=== PATIENT | female | born 1960 | race Caucasian/White ===

== ENCOUNTER 2019-12-23 10:19 | Emergency (ER) | payer OTHER ==
[~2019-12-23] VITALS: Ht 157.5 cm; Wt 53.1 kg
[~2019-12-23 10:19] MED LIST: DULO60CA45 PO
[2019-12-23] MEDS ORDERED: OLANZAPINE 5 MG TABLET PO ONE (10:30)
[2019-12-23] MEDS ORDERED: OLANZAPINE 5 MG TABLET ONE (10:34)
--- NOTE | 2019-12-23 10:38 | NUR ---
PT PROVIDED W/ A MEAL TRAY.
[2019-12-23 10:40] LABS: BASOPHILS # (AUTO) 0.3 /CMM (0.0-0.2); BASOPHILS % (AUTO) 3.8 % (0.0-2.0); EOSINOPHILS % (AUTO) 1.8 % (0.0-6.0); HEMATOCRIT 43 % (33-45); HEMOGLOBIN 14.4 g/dL (11.5-14.8); LYMPHOCYTES # (AUTO) 1.3 /CMM (0.8-4.8); LYMPHOCYTES % (AUTO) 18.9 % (20.0-44.0); MEAN CORPUSCULAR HGB CONC 34 g/dl (31.0-36.0); MEAN CORPUSCULAR VOLUME 90 fL (82-100); MONOCYTES # (AUTO) 0.3 /CMM (0.1-1.30); MONOCYTES % (AUTO) 4.5 % (2.0-12.0); PLATELET COUNT (AUTO) 334 /CMM (150-450)
[2019-12-23 10:54] LABS: CALCIUM, SERUM 8.9 mg/dL (8.5-10.1); CARBON DIOXIDE 20 mmol/L (21-32); CHLORIDE 101 mmol/L (98-107); CREATININE 0.5 mg/dL (0.6-1.3); GLUCOSE 82 mg/dL (74-106); POTASSIUM 3.7 mmol/L (3.5-5.1); SODIUM SERUM 139 mmol/L (136-145); UREA NITROGEN, BLOOD 15 mg/dL (7-18)
[2019-12-23 10:59] LABS: ALANINE AMINOTRANSFERASE 20 U/L (12-78); ALCOHOL, BLOOD < 3 mg/dL (0-0); ALKALINE PHOSPHATASE 84 U/L (46-116); ASPARTATE AMINOTRANSFERASE 21 U/L (15-37); BILIRUBIN,DIRECT 0.1 mg/dL (0.0-0.2); BILIRUBIN,TOTAL 0.7 mg/dL (0.2-1.0); SALICYLATE 4.4 mg/dL (2.8-20.0); TOTAL PROTEIN, SERUM 7.2 g/dL (6.4-8.2)
[2019-12-23 11:03] LABS: ACETAMINOPHEN 0 ug/ml (10-30)
--- NOTE | 2019-12-23 11:30 | NUR ---
CLEO, C/O WEAKNESS, EMOTIONAL, STS "I HAVENT ATE IN 4 DAYS", assumed care of pt, pt in bed, -sob, nad noted, vss.
--- NOTE | 2019-12-23 11:45 | NUR ---
CALLED CRISIS FOR EVAL. SECOND ATTEPMT.
--- NOTE | 2019-12-23 11:50 | NUR ---
REFUSING TO PROVIDE URINE SAMPLE.
--- NOTE | 2019-12-23 12:11 | NUR ---
PAGED CRISIS RENNY FOR EVAL. THIRD ATTEMPT.
--- NOTE | 2019-12-23 12:32 | NUR ---
RENNY CALLED BACK. SHE IS AT ANOTHER HOSPITAL WITH ANOTHER PT. WILL TRY TO COME IN WHEM SHE BECOMES AVAILABLE. SHE PROVIDED AN UNKNOWN ETA FOR EVALUATION AND ADVISED IF ANYONE ELSE CAN PERFORM EVALUATION.
--- NOTE | 2019-12-23 13:02 | NUR ---
LUNCH TRAY PROVIDED, TOLERATING PO WELL.
--- NOTE | 2019-12-23 13:12 | NUR ---
ART CAPILLA PANEL MACHINE SETTER. WILL EVALUATE THE PATIENT.
[2019-12-23 14:30] VITALS: BP 139/90
--- NOTE | 2019-12-23 14:33 | NUR ---
DAIRY MANUFACTURING TECHNOLOGIST OFELIA SAVAGE AT BEDSIDE
--- NOTE | 2019-12-23 15:01 | NUR ---
seen by dr. izquierdo, pt denies any s/i or h/i, pt wants to be d/c. per dr. izquierdo pt can go.
--- NOTE | 2019-12-23 16:16 | NUR ---
Patient given written and verbal discharge instructions. Patient verbalizes understanding of instructions. Patient is ambulatory with steady gait. Refuses offer of half-way placement. Patient given list of available shelters in surrounding area.
== END 2019-12-23 16:18 | disposition home or self-care (01) ==
LOC: ER 10:41
DX: F28 Other psychotic disorder not due to a substance or known physiological condition (principal); F32.9 Major depressive disorder, single episode, unspecified; F17.200 Nicotine dependence, unspecified, uncomplicated; Z60.2 Problems related to living alone; Z79.899 Other long term (current) drug therapy
CPT/HCPCS: 36415; 71045; 80048; 80076; 80307; 80329; 85025; 99285; G0480

== ENCOUNTER 2020-06-29 07:31 | Inpatient (IN) | payer OTHER ==
[~2020-06-29] VITALS: Ht 160 cm; Wt 54.4 kg
--- NOTE | 2020-06-29 07:35 | NUR ---
shereen, picked up in her car, c/o nausea vomiting x 3 days,-diarrhea. Dr. Remy at bedside for eval. Patient a/ox3, appears to be anxious and easily agitated. Breathing even and unlabored, no sob noted. Needs attended.
[2020-06-29] MEDS ORDERED: OLANZAPINE 5 MG TABLET ONE (07:43)
--- NOTE | 2020-06-29 07:45 | NUR ---
Patient given a urine cup, refused to give a urine sample at this time.
[2020-06-29] MEDS ORDERED: OLANZAPINE 5 MG TABLET PO ONE ×2 (08:00→12:00)
[2020-06-29 08:12] LABS: BASOPHILS % (AUTO) 0.7 % (0.0-2.0); EOSINOPHILS % (AUTO) 1.5 % (0.0-6.0); HEMATOCRIT 42 % (33-45); HEMOGLOBIN 14.2 g/dL (11.5-14.8); LYMPHOCYTES # (AUTO) 1.9 /CMM (0.8-4.8); LYMPHOCYTES % (AUTO) 29.4 % (20.0-44.0); MEAN CORPUSCULAR HGB CONC 34 g/dl (31.0-36.0); MEAN CORPUSCULAR VOLUME 89 fL (82-100); MONOCYTES # (AUTO) 0.5 /CMM (0.1-1.30); MONOCYTES % (AUTO) 7.2 % (2.0-12.0); NEUTROPHILS % (AUTO) 61.2 % (43.0-81.0); PLATELET COUNT (AUTO) 336 /CMM (150-450); RED BLOOD CELL COUNT(AUTO) 4.74 MIL/uL (4.0-5.2); WHITE BLOOD COUNT (AUTO) 6.5 K/uL (4.3-11.0)
--- NOTE | 2020-06-29 08:44 | NUR ---
Patient resting, no distress noted.
[2020-06-29 08:46] LABS: CALCIUM, SERUM 9.2 mg/dL (8.5-10.1); CARBON DIOXIDE 21 mmol/L (21-32); CHLORIDE 101 mmol/L (98-107); CREATININE 0.6 mg/dL (0.6-1.3); GLUCOSE 95 mg/dL (74-106); POTASSIUM 3.9 mmol/L (3.5-5.1); SODIUM SERUM 136 mmol/L (136-145); UREA NITROGEN, BLOOD 18 mg/dL (7-18)
[2020-06-29 08:53] LABS: ALANINE AMINOTRANSFERASE 21 U/L (12-78); ALCOHOL, BLOOD < 3 mg/dL (0-0); ALKALINE PHOSPHATASE 75 U/L (46-116); ASPARTATE AMINOTRANSFERASE 20 U/L (15-37); BILIRUBIN,DIRECT 0.2 mg/dL (0.0-0.2); SALICYLATE 3.7 mg/dL (2.8-20.0); TOTAL PROTEIN, SERUM 7.3 g/dL (6.4-8.2)
[2020-06-29 08:55] LABS: ACETAMINOPHEN 0 ug/ml (10-30)
[2020-06-29 09:17] LABS: APPEARANCE,URINE CLEAR (CLEAR); BILIRUBIN,URINE MODERATE (NEGATIVE); BLOOD, URINE SMALL Ery/uL (NEGATIVE); KETONES,URINE >=80 (NEGATIVE); LEUKOCYTE ESTERASE ,URINE TRACE (NEGATIVE); NITRITE, URINE NEGATIVE (NEGATIVE); PROTEIN,URINE >=300 mg/dl (NEGATIVE); UGLUCOSE NEGATIVE (NEGATIVE); UROBILINOGEN,URINE 0.2 EU/dL (0.2)
[2020-06-29 09:35] LABS: COLOR,URINE DARK YELLOW (YELLOW)
[2020-06-29 09:36] LABS: BACTERIA,URINE Few /HPF (None Seen); MUCUS,URINE Few /LPF (None Seen); SQUAMOUS EPITHELIAL CELL,UR Few /HPF (None Seen)
--- NOTE | 2020-06-29 10:15 | NUR ---
SSD GIPSY AT BEDSIDE.
[2020-06-29] MEDS ORDERED: LORAZEPAM 1 MG TABLET PO ONE (12:00)
[2020-06-29] MEDS ORDERED: LORAZEPAM INJ 2 MG/ML VIAL IM ONE (12:00)
[2020-06-29] MEDS ORDERED: HALOPERIDOL LACTATE INJ 5 MG/ML VIAL IM ONE (12:00)
[2020-06-29] MEDS ORDERED: HALOPERIDOL LACTATE INJ 5 MG/ML VIAL ONE (12:02)
[2020-06-29] MEDS ORDERED: LORAZEPAM INJ 2 MG/ML VIAL ONE (12:03)
--- NOTE | 2020-06-29 12:07 | NUR ---
PT WENT TO THAT STATION AGITATED, YELLING ANG BEING DISRUPTIVE TO THE CARE FLOOR. PT WAS ASKED SEVERAL TIMES TO PLEASE GO BACK TO HER BED WHILE AWAITING FOR DISCHARGE. WHEN PT WAS FINALLY ESCORTED BACK TO THE BED, PT GOT COMBATIVE AND SPITTING AT STAFF. LILLIANA KUMAR WAS CALLED. PT PLACED ON RESTRAINTS AND MEDICATED ORDERED. 1:1 SITTER AT BEDSIDE. WILL CONTINUE TO MONITOR PT
--- NOTE | 2020-06-29 13:22 | NUR ---
SPOKE TO RENNY SANTOSW, ETA 3 MINS.
--- NOTE | 2020-06-29 14:34 | NUR ---
RENNY AT BEDSIDE FOR EVAL.
--- NOTE | 2020-06-29 15:39 | NUR ---
BED 215 A
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
--- NOTE | 2020-06-29 16:03 | NUR ---
10:20am This SW returned to speak with the patient with information regarding Section 8 housing. This SW provided the patient with a printout from [facility] stating The Section 8 waiting list is closed until further notice and the homelessness resource packet. In addition to, this SW was to complete the social work therapist assessment and the only report the patient provided was that she was diagnosed with depression and wanted to speak with a psychiatrist. The patient then began to argue with this SW by stating All you are doing is giving me papers. I want a home. Find me a place to live. ISAIAS Warren witnessed that this patient was speaking with this SW.
--- NOTE | 2020-06-29 16:03 | NUR ---
11:15 am: This SW spoke with her superior Slime Dempsey LCSW and Slime asked to speak with the patient via tele. Slime Dempsey LCSW explained to the patient that KARLIE Ribera would submit a referral to [facility] for possible placement but there could be a long wait. Slime Dempsey LCSW spoke with the headline writer of this note, Marshall Ribera, to go ahead and refer this patient to [facility] and to provide her any homelessness resources.
--- NOTE | 2020-06-29 16:04 | NUR ---
11:30am: This SW spoke with [facility] medical office representative Mily (include phone number) to submit a referral request for this patient to be placed in temporary housing. Mily completed an eligibility assessment with this SW, including gathering information on patients demographics and medical history. SW provided Mily with information from patients medical records. Mily informed this SW that based on patients medical history and the age criteria of 65 and older, the patient does not qualify for the [facility] program. This SW thanked representative Minor for her time.
--- NOTE | 2020-06-29 16:05 | NUR ---
11:45am: This SW notified nursing staff that [facility] would not accept the patient and that the patient would have to leave once she was medically cleared by the ER doctor on service. This SW provided the following resources to the patient: Substance Abuse resources provided included: [facility] Substance Abuse Self-Helpline ([facility]) ; [facility] [address] [facility] [place] [id number] ; [facility] [place] [address] [facility] [address] ; [facility] [address] [facility] [id number] ; [facility] [address] [facility] [address] ; [facility] [address] [facility] [address] ; [facility] 909 [facility] [id number] ; [facility]stance Abuse [facility] ; [facility] ; [facility] [place]; [facility] [place]; [facility] [address] [place]; [facility] [place]; [facility] [place]; [facility] [place]; [facility] [place]; Alcoholics Anonymous -SFV; Kr-Lhhu-Ynxihiu ; Marijuana Anonymous -SFV; Narcotics Anonymous www.na.org. Year-round shelters : [facility] [address] [place] [address] ; [place] [address] [facility] [place] [address]; [facility] [address] [facility] [address] Hygiene: [facility]: [address] [place] ; [facility] [address] [facility] [place] ; [facility] [address] . Food Resources: [facility]- [address] [place]; Meet Each Need wit Dignity ([facility]) [address] [facility] [place]; [facility] 0671 [facility]; [facility] [address].
--- NOTE | 2020-06-29 16:08 | NUR ---
COVID SWAB SENT.
--- NOTE | 2020-06-29 16:53 | NUR ---
CALL FROM LAB,COVID TEST RESULT=NEGATIVE
--- NOTE | 2020-06-29 17:05 | NUR ---
REPORT GIVE TO FANNIE ESPARZA.
--- NOTE | 2020-06-29 17:38 | NUR ---
PATIENT TRANSFERRED TO [facility]. PATIENT ASLEEP BUT EASILY AROUSABLE, NO DISTRESS NOTED. NEEDS ATTENDED.
[2020-06-29] MEDS ORDERED: DULO60CA64 PO (17:47)
[2020-06-29] MEDS ORDERED: LOSA25TA27 PO (17:47)
[2020-06-29] MEDS ORDERED: METH20TA9 PO (17:47)
[2020-06-29] MEDS ORDERED: BLOOD SUGAR DIAGNOSTIC 1 EACH STRIP IN ONE (18:00)
[2020-06-29] MEDS ORDERED: MAG HYDROX/AL HYDROX/SIMETH 30 ML UDC PO PRN (18:00)
--- NOTE | 2020-06-29 18:05 | NUR ---
RN NOTE- PT ADMITTED TO [facility] AT THIS TIME.
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
[2020-06-30] MEDS ORDERED: VALA500T40 PO (02:27)
[2020-06-30] MEDS ORDERED: IBUP-1953 PO (02:36)
[2020-06-30] MEDS ORDERED: DIPH25TA62 PO (02:36)
[2020-06-30] MEDS ORDERED: IBUP100O19 PO (02:36)
--- NOTE | 2020-06-30 06:40 | NUR ---
GPS RN CLOSING NOTE: PT SLEPT THROUGHOUT THIS SHIFT D/T EMERGENCY MEDICATION GIVEN AT ER. THIS NURSE TRIED TO WAKE PT UP AT 0630 BUT STATED "I JUST WANT TO SLEEP", AND WENT BACK TO SLEEP. RESPIRATION EVEN AND UNLABORED WITH EQUAL RISE AND FALL OF THE CHEST, ON ROOM AIR. WILL CONTINUE TO MONITOR AND ENDORSE TO AM SHIFT.
[2020-06-30 07:11] LABS: CHOLESTEROL 191 mg/dL (<200); HDL CHOLESTEROL 56 mg/dL (40-60); LDL 122 mg/dL (0-99); TRIGLYCERIDES 102 mg/dL (30-150)
[2020-06-30 07:15] LABS: ALBUMIN 3.4 g/dL (3.4-5.0); BILIRUBIN,TOTAL 0.8 mg/dL (0.2-1.0); CALCIUM, SERUM 9.4 mg/dL (8.5-10.1); CREATININE 0.5 mg/dL (0.6-1.3); POTASSIUM 3.8 mmol/L (3.5-5.1); TOTAL PROTEIN, SERUM 6.4 g/dL (6.4-8.2)
[2020-06-30 08:00] VITALS: BP 109/70
[2020-06-30] MEDS: LOSARTAN POTASSIUM 25 MG TABLET PO SCH (09:00)
--- NOTE | 2020-06-30 09:00 | NUR ---
RN NOTE- PT AGGRESSIVE POSTURING USING PROFANITY YELLING REDIRECTED PRN RX GIVEN FOOD BROUGHT PT MD JULIA TO SEE PT DENYING SI HI AH VH
[2020-06-30] MEDS: clonazePAM 0.5 MG TABLET PO PRN (09:39)
--- NOTE | 2020-06-30 09:41 | NUR ---
RN NOTE- PT AGGRESSIVE SCREAMING USING PROFANITY. CLONOPIN 0.5 MG GIVEN
--- NOTE | 2020-06-30 09:47 | NUR ---
Social Work Initial Discharge Note: Patient is currently homeless and will require a placement. This fiction and nonfiction prose writer contacted patient's family member Krystal ([phone]) but the number did not exist. This fiction and nonfiction prose writer attempted to discuss discharge plan with patient and patient was uncooperative. This fiction and nonfiction prose writer will work with the MD and treatment team to discuss alternative placement for patient.
--- NOTE | 2020-06-30 09:47 | NUR ---
Social Work Individual Therapy: This copywriter attempted to discuss placement with patient and patient was uncooperative. Patient was verbally abusive towards this copywriter and stated "get the fuck out of my room". This copywriter will attempt to meet with patient at a different time.
--- NOTE | 2020-06-30 09:47 | NUR ---
Social Work Family Contact: This press writer contacted patient's family member Krystal ([phone]) but the number did not exist.
--- NOTE | 2020-06-30 09:50 | NUR ---
UR Note: This repairer typewriter received an email from [employer] with authorization information: [facility] ([phone]) Auth: [id number] and is authorized for three days. This repairer typewriter left a voicemail to Adela to call back as Adela does not accept clinicals through her voicemail.
[2020-06-30] MEDS: DULOXETINE HCL 30 MG CAPSULE.DR PO SCH (11:42)
--- NOTE | 2020-06-30 12:13 | NUR ---
UR Note: This television script writer received an email from [employer] with authorization information: [facility]ela with [facility] ([phone]) Auth: [id number] and is authorized until Tuesday 07/03. Per Aedla, she stated that Cristal case assembler ([phone]) will help arrange outpatient appointments upon dc. This television script writer contacted and left a voicemail.
--- NOTE | 2020-06-30 12:28 | NUR ---
Social Work Note Substance Abuse Intervention: Patient was provided with a brief substance abuse intervention and referred to the following substance abuse programs: [facility] Substance Abuse Self-helpline ([phone]); [facility] [address] [place] [address] ([phone]); [facility] [address] [facility] [address] ([phone]); [facility] Program ([phone]); [facility] ([phone]); [facility] ([phone]); [facility] ([phone]).
[2020-06-30 16:00] VITALS: BP 104/68
[2020-06-30 20:55] VITALS: BP 91/63
[2020-06-30] MEDS: OLANZAPINE 5 MG/TAB.RAPDIS PO SCH (21:08)
[2020-07-01 08:00] VITALS: BP 103/75
[2020-07-01] MEDS: VALACYCLOVIR HCL 500 MG TABLET PO SCH (08:18)
[2020-07-01] MEDS: OLANZAPINE 5 MG/TAB.RAPDIS PO SCH ×2 (08:18→21:37)
[2020-07-01] MEDS: LOSARTAN POTASSIUM 25 MG TABLET PO SCH (08:18)
[2020-07-01] MEDS: DULOXETINE HCL 30 MG CAPSULE.DR PO SCH (08:18)
--- NOTE | 2020-07-01 08:30 | NUR ---
KARLIE Individual Therapy: This sports book writer met with patient to provide brief therapy. Pt was uncooperative and was verbally abusive towards this sports book writer. Pt did not want to talk to this sports book writer and stated "get the hell out". This sports book writer was unable to provide brief therapy at this moment.
--- NOTE | 2020-07-01 09:16 | NUR ---
Social Work Note: This verse writer attempted to discuss placement options with pt. Pt was uncooperative and was not understanding. This verse writer gave pt options of Independent Living and Board and Care with various prices. Pt refused to pay $900 or $1,200 and was tangential. She stated that this verse writer is a social media specialist and is obligated to get her section housing. This verse writer explained that we do not do that in the psychiatric unit and this verse writer will provide resources. Pt refuses resources and became verbally abusive and aggress. Pt stated "Go f yourself".
[2020-07-01] MEDS: NICOTINE PATCH (21MG) 21 MG PATCH.TD24 TD SCH (09:23)
--- NOTE | 2020-07-01 10:08 | NUR ---
Social Work Coordination of Care: This sheet writer spoke with Paul (entertainment agent) from [facility] ([phone]) option 7 and proceeded with an assessment to see if pt meets criteria. Per Paul, she stated that pt does not meet the criteria because she does not have medical conditions and does not meet the minimum age.
--- NOTE | 2020-07-01 11:06 | NUR ---
Social Work Note: This financial underwriter met with patient and stated that she is accepted to an Independent Living [address] [place] [address], [facility] [place]; ([phone]) admin Yury. This financial underwriter stated that they are willing to accept her with $1,000 dollars and pt agreed.
--- NOTE | 2020-07-01 11:07 | NUR ---
Social Work Coordination of Care: This insurance underwriter sales spoke with Yurymegan leyva ([phone]) [facility] [address] [place] [address] is willing to accept pt. Addendum: 07/06/20 at 1336 by SUSHMA ZIE[address]ER [facility]
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
[2020-07-01] MEDS: clonazePAM 0.5 MG TABLET PO PRN (13:12)
--- NOTE | 2020-07-01 13:12 | NUR ---
RN NOTES PATIENT BECAME ANXIOUS KLONOPIN GIVEN ORDERED, SAFETY MEASURES IN PLACE. WILL CONTINUE TO MONITOR PATIENT.
[2020-07-01 16:00] VITALS: BP 104/76
[2020-07-01] MEDS ORDERED: HALOPERIDOL LACTATE INJ 5 MG/ML VIAL IM STA (16:18)
[2020-07-01] MEDS ORDERED: diphenhydrAMINE HCL 50 MG/ML VIAL IM STA (16:18)
[2020-07-01] MEDS ORDERED: LORAZEPAM INJ 2 MG/ML VIAL IM STA (16:18)
--- NOTE | 2020-07-01 17:48 | NUR ---
RN NOTES VITAL SIGNS REMAIN WITHIN NORMAL LIMITS, PATIENT ALERT ORIENTED X 3. NO ACUTE DISTRESS NOTED. WILL CONTINUE TO MONITOR SAFETY MEASURES IN PLACE.
--- NOTE | 2020-07-01 18:08 | NUR ---
RN NOTES PATIENT SITTING IN BED, EATING DINNER, ALERT ORIENTED X 3. NO ACUTE DISTRESS NOTED. BREATHING UNLABORED. CALM AND COOPERATIVE AT THIS TIME . VITAL SIGNS REMAIN WITHIN NORMAL LIMITS. SAFETY MEASURES IN PLACE. WILL CONTINUE TO MONITOR
--- NOTE | 2020-07-01 18:45 | NUR ---
RN NOTES PATIENT LYING IN BED, ALERT ORIENTED X 3. NO ACUTE DISTRESS NOTED. VITAL SIGNS REMAIN WITHIN NORMAL LIMITS. SAFETY MEASURES IN PLACE. WILL CONTINUE TO MONITOR
--- NOTE | 2020-07-01 18:46 | NUR ---
RN NOTE:PATIENT STARTED TO GET ANGRY YELLING AND SCREAMING ,HOSTILE ,STRIKING AT STAFF DESPITE TRYING TO CALM HER DOWN SHE STARTED TO SHOUT AND VERBALLY ABUSING STAFF ,TRIED TO REDIRECT HER TO LOWER STIMULI SETTING ,1:1 INTERACTION WITH PATIENT ,OFFERED PO MEDICATION BUT PATIENT REFUSED NOTIFIED WITH NEW ORDER ATIVAN 2MG IM ,HALDOL 5MG IM ,BENADRYL 50MG IM AND GIVEN AT 16:38 BY PRIMARY NURSE ,VS AT AT 17:23 BP 122/79,P 94,R 18 ,O2 SAT 99%,17:38 BP 118/78 ,P 96 ,R 18 ,O2 SAT 99%, PATIENT CALM RESTING AT THIS TIME WILL CONTINUE TO MONITOR .
[2020-07-01 20:35] VITALS: BP 95/59
[2020-07-01 21:15] VITALS: BP 88/61
--- NOTE | 2020-07-01 21:39 | NUR ---
GPS-RN NOTE: SCHEDULED ZYPREXA ZYDIS 7.5MG PO NOT ADMINISTERED DUE TO BP 88/61. WILL CONTINUE TO MONITOR.
[2020-07-02 08:00] VITALS: BP 99/60
[2020-07-02] MEDS: OLANZAPINE 5 MG/TAB.RAPDIS PO SCH ×2 (08:01→21:31)
[2020-07-02] MEDS: DULOXETINE HCL 30 MG CAPSULE.DR PO SCH (08:01)
[2020-07-02] MEDS: VALACYCLOVIR HCL 500 MG TABLET PO SCH (08:01)
[2020-07-02] MEDS: NICOTINE PATCH (21MG) 21 MG PATCH.TD24 TD SCH (08:01)
[2020-07-02] MEDS: LOSARTAN POTASSIUM 25 MG TABLET PO SCH (08:08)
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
[2020-07-02] MEDS ORDERED: HALOPERIDOL LACTATE INJ 5 MG/ML VIAL IM STA (12:41)
[2020-07-02] MEDS ORDERED: diphenhydrAMINE HCL 50 MG/ML VIAL IM STA (12:41)
[2020-07-02] MEDS ORDERED: LORAZEPAM INJ 2 MG/ML VIAL IM STA (12:41)
--- NOTE | 2020-07-02 12:41 | NUR ---
GPS NOTE THE PATIENT HAD TELEHEALTH SESSION WITH DR REED AND DURING THE SESSION THE PATIENT REQUESTED THE DOCTOR TO PRESCRIBE RITALIN. THE DOCTOR EXPLAIN THE REASONS WHY RITALIN CANNOT PRESCRIBED. DESPITE GIVING EDUCATION/EXPLANATION TO THE PATIENT, THE PATIENT REFUSED TO ACCEPT GIVEN INFORMATION AND GOT UPSET. ALSO, MD INFORMED HER THAT HER HOLD WILL BE EXTENDED. AFTER FINISHING TELEHEALTH SESSION, THE PATIENT STARTED TO SHOUT AND WANTING TO LEAVE THE HOSPITAL. THE PATIENT WAS VERY LOUD AND NOT DIRECTABLE. MD IS MADE AWARE AND PER MD ORDER GAVE SHOT OF BENADRYL, HALOD AND ATIVAN. THE PATIENT TOLERATES THE SHOT WELL. NO SIDE EFFECTS NOTED AT THIS TIME. WILL CONTINUE TO MONITOR THE PATIENT CLOSELY.
[2020-07-02 16:00] VITALS: BP 111/78
[2020-07-02] MEDS: MAGNESIUM HYDROXIDE 30 ML UDC PO PRN (17:21)
[2020-07-02] MEDS: clonazePAM 0.5 MG TABLET PO PRN (19:44)
[2020-07-02 20:02] VITALS: BP 133/78
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
[2020-07-03 08:00] VITALS: BP 110/76
[2020-07-03] MEDS: NICOTINE PATCH (21MG) 21 MG PATCH.TD24 TD SCH (08:24)
[2020-07-03] MEDS: OLANZAPINE 5 MG/TAB.RAPDIS PO SCH ×2 (08:24→21:12)
[2020-07-03] MEDS: DULOXETINE HCL 30 MG CAPSULE.DR PO SCH (08:24)
[2020-07-03] MEDS: VALACYCLOVIR HCL 500 MG TABLET PO SCH (08:24)
[2020-07-03] MEDS: LOSARTAN POTASSIUM 25 MG TABLET PO SCH (08:24)
[2020-07-03] MEDS: clonazePAM 0.5 MG TABLET PO PRN ×3 (09:08→23:23)
--- NOTE | 2020-07-03 11:13 | NUR ---
UR Note: Spoke with Cristal watch case polisher ([phone]) who stated that she will authorize pt's stay until July 07Monday and will require clinical review that day. Auth #[id number].
[2020-07-03] MEDS: MAGNESIUM HYDROXIDE 30 ML UDC PO PRN (12:48)
--- NOTE | 2020-07-03 15:00 | NUR ---
GPS/RN KLONOPIN 0.5MG PO GIVEN FOR ANXIETY ORDERED
[2020-07-03 16:00] VITALS: BP 119/89
[2020-07-03 19:46] VITALS: BP 125/77
--- NOTE | 2020-07-03 23:24 | NUR ---
RN NOTES: ANXIETY PT.C/O ANXIOUS ,KLONOPIN 0.5 MG PO PRN GIVEN PER PT. REQUEST, WILL CONTINUE TO MONITOR.
--- NOTE | 2020-07-04 06:31 | NUR ---
RN NOTES: PT. RESTING IN HER ROOM , NO ACUTE DISTRESS, NO CHANGES NOTED, ALL NEEDS ANTICIPATED, WILL CONTINUITY WITH CARE.
[2020-07-04 08:00] VITALS: BP 113/73
[2020-07-04] MEDS: DULOXETINE HCL 30 MG CAPSULE.DR PO SCH (08:08)
[2020-07-04] MEDS: NICOTINE PATCH (21MG) 21 MG PATCH.TD24 TD SCH (08:08)
[2020-07-04] MEDS: OLANZAPINE 5 MG/TAB.RAPDIS PO SCH ×2 (08:08→21:11)
[2020-07-04] MEDS: LOSARTAN POTASSIUM 25 MG TABLET PO SCH (08:09)
--- NOTE | 2020-07-04 08:36 | NUR ---
GPS/RN PT IS YELLING, NOT REDIRECTABLE SCREAMS , USING PROFANE LANGUAGE. DR REED CALLED FOR THE ORDERS . NEW ORDERS RECEIVED AND CARRIED OUT
[2020-07-04] MEDS ORDERED: HALOPERIDOL LACTATE INJ 5 MG/ML VIAL IM ONE (09:00)
[2020-07-04] MEDS ORDERED: diphenhydrAMINE HCL 50 MG/ML VIAL IM ONE (09:00)
[2020-07-04] MEDS ORDERED: LORAZEPAM INJ 2 MG/ML VIAL IM ONE (09:00)
[2020-07-04] MEDS ORDERED: VALACYCLOVIR HCL 500 MG TABLET PO PRN (09:00)
[2020-07-04 16:00] VITALS: BP 130/82
[2020-07-04] MEDS: clonazePAM 0.5 MG TABLET PO PRN (17:06)
--- NOTE | 2020-07-04 17:11 | NUR ---
GPS/RN KLONOPIN 0.5MG PO GIVEN FOR ANXIETY ORDERED
[2020-07-04] MEDS: MAGNESIUM HYDROXIDE 30 ML UDC PO PRN (17:36)
[2020-07-04 20:36] VITALS: BP 124/87
[2020-07-05 08:00] VITALS: BP 130/87
[2020-07-05] MEDS: DULOXETINE HCL 30 MG CAPSULE.DR PO SCH (08:51)
[2020-07-05] MEDS: LOSARTAN POTASSIUM 25 MG TABLET PO SCH (08:51)
[2020-07-05] MEDS: clonazePAM 0.5 MG TABLET PO PRN ×3 (08:52→17:56)
[2020-07-05] MEDS: OLANZAPINE 5 MG/TAB.RAPDIS PO SCH ×2 (08:52→22:00)
[2020-07-05] MEDS: NICOTINE PATCH (21MG) 21 MG PATCH.TD24 TD SCH (08:53)
[2020-07-05] MEDS: DOCUSATE SODIUM 250 MG CAPSULE PO SCH ×2 (09:47→17:08)
[2020-07-05] MEDS ORDERED: HALOPERIDOL LACTATE INJ 5 MG/ML VIAL IM STA (11:14)
[2020-07-05] MEDS ORDERED: diphenhydrAMINE HCL 50 MG/ML VIAL IV STA (11:14)
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
--- NOTE | 2020-07-05 13:54 | NUR ---
RN NOTE:PATIENT IRRITABLE MEDICATED WITH KLONOPIN 0.5MG ,WILL CONTINUE TO MONITOR .
[2020-07-05] MEDS: diphenhydrAMINE HCL ELIX 25 MG/10 ML UDC PO PRN (15:53)
[2020-07-05] MEDS: ACETAMINOPHEN 325 MG TABLET PO PRN (15:54)
[2020-07-05 16:00] VITALS: BP 128/87
--- NOTE | 2020-07-05 17:59 | NUR ---
GPS/RN note :KLONOPIN 0.5MG PO GIVEN FOR ANXIETY ORDERED.WILL CONTINUE TO MONITOR.
[2020-07-05 20:42] VITALS: BP 134/77
[2020-07-06] MEDS: clonazePAM 0.5 MG TABLET PO PRN ×2 (02:55→08:47)
--- NOTE | 2020-07-06 03:19 | NUR ---
GPS RN note:Patient c/o feeling restless and anxious.Requested and given Klonopin 0.5 mg PO as ordered.
[2020-07-06 08:00] VITALS: BP 134/71
[2020-07-06] MEDS: DOCUSATE SODIUM 250 MG CAPSULE PO SCH ×2 (08:07→16:27)
[2020-07-06] MEDS: DULOXETINE HCL 30 MG CAPSULE.DR PO SCH (08:07)
[2020-07-06] MEDS: LOSARTAN POTASSIUM 25 MG TABLET PO SCH (08:07)
[2020-07-06] MEDS: NICOTINE PATCH (21MG) 21 MG PATCH.TD24 TD SCH (08:07)
[2020-07-06] MEDS: OLANZAPINE 5 MG/TAB.RAPDIS PO SCH ×2 (08:08→21:08)
[2020-07-06] MEDS: diphenhydrAMINE HCL ELIX 25 MG/10 ML UDC PO PRN (08:47)
--- NOTE | 2020-07-06 08:47 | NUR ---
RN NOTE- PT W ANXIETY RESTLESSNESS PACING. CLONOPIN 0.5 MG AND BENADRYL 25 MG GIVEN
--- NOTE | 2020-07-06 09:00 | NUR ---
RN NOTE-PT LABILE W MOMENTS OF CALM AND PLEASANT INTERACTION FOLLOWED BY PROFANE OUTBURSTS AND SCREAMING AT STAFF. NON DIRECTABLE RX GIVEN TO NO AVAIL. DR REED NOTIFIED .
[2020-07-06] MEDS ORDERED: OLANZAPINE 10 MG VIAL IM STA (09:09)
[2020-07-06] MEDS ORDERED: LORAZEPAM INJ 2 MG/ML VIAL IM STA ×2 (09:10→12:44)
[2020-07-06] MEDS ORDERED: diphenhydrAMINE HCL 50 MG/ML VIAL IM STA ×2 (09:22→12:44)
--- NOTE | 2020-07-06 09:23 | NUR ---
RN NOTE:PATIENT YELLING AND AGITATED ,VERBALLY ABUSIVE ,STRIKING AT STAFF ,DESPITE TRYING TO CALM HER DOWN SHE STARTED TO SHOUT AND ,ASSAULTIVE BEHAVIOR ,TRIED TO REDIRECT HER TO LOWER STIMULI SETTING ,1:1 INTERACTION WITH PATIENT , OFFERED PO MEDICATION BUT PATIENT REFUSED DR. REED NOTIFIED WITH NEW ORDER ZYPREXA 5MG IM,BENADRYL 25MG IM AND GIVEN AT 09:23 T ALL ORDERS CARRIED OUT ,VS AT 10:00 BP 119/90 ,P 82,R 18 .WILL CONTINUE TO MONITOR .
[2020-07-06 10:00] VITALS: BP 116/65
[2020-07-06] MEDS ORDERED: HALOPERIDOL LACTATE INJ 5 MG/ML VIAL IM STA (12:44)
[2020-07-06] MEDS: METHYLPHENIDATE HCL (10MG) 10 MG TABLET PO SCH (13:00)
--- NOTE | 2020-07-06 13:00 | NUR ---
RN NOTE- AGITATED SCREAMING AT SW AND STAFF POSTURING EXTREMELY LABILE PROFANE AND NOT DIRECTABLE DR REED NOTIFIED. ATIVAN 2 MG , BENADRYL 50 MG AND HALDOL 5 MG GIVEN IM W FEMALE STAFF AND SECURITY IN QUIET ROOM.
--- NOTE | 2020-07-06 14:00 | NUR ---
RN NOTE:PATIENT STRIKING AT STAFF ,VERBALLY ABUSIVE ,ANGRY,DESPITE TRYING TO CALM HER DOWN SHE STARTED TO SHOUT AND ,ASSAULTIVE BEHAVIOR ,TRIED TO REDIRECT HER TO LOWER STIMULI SETTING ,1:1 INTERACTION WITH PATIENT , OFFERED PO MEDICATION BUT PATIENT REFUSED DR. REED NOTIFIED WITH NEW ORDER ATIVAN 2MG IM,BENADRYL 50 MG IM AND BENADRYL 50MG 1M ANG GIVEN AT 1300 OUT ,VS AT 1400 118/77 ,P 78,R 18 .WILL CONTINUE TO MONITOR .
--- NOTE | 2020-07-06 14:04 | NUR ---
Independent Living Contact: KARLIE spoke with Yury ([phone]) from [employer] located at [address] [place] [address] and he confirmed that he is willing to accept pt. KARLIE informed him that the pt will be discharging tomorrow and he stated that was acceptable.
[2020-07-06] MEDS: ACETAMINOPHEN 325 MG TABLET PO PRN (15:28)
--- NOTE | 2020-07-06 15:29 | NUR ---
ISAIAS NOTE- PT W HEADACHE AND GENERAL ACHES. TYYLENOL 650 ,G Addendum: 07/06/20 at 1530 by BALDOMERO ROSAS RN ISAIAS NOTE- HEADACHE AND GENERAL DISCOMFORT. TYLENOL 650 MG GIVEN
[2020-07-06 16:00] VITALS: BP 134/84
[2020-07-06 20:07] VITALS: BP 103/67
[2020-07-07] MEDS ORDERED: KEY,NONCONTROL,TO KEEP IN PYXI 1 EA MC ONE ×2 (07:30→08:12)
[2020-07-07 08:00] VITALS: BP 119/77
[2020-07-07 08:01] VITALS: BP 119/77
[2020-07-07] MEDS: NICOTINE PATCH (21MG) 21 MG PATCH.TD24 TD SCH (08:01)
[2020-07-07] MEDS: DOCUSATE SODIUM 250 MG CAPSULE PO SCH (08:01)
[2020-07-07] MEDS: LOSARTAN POTASSIUM 25 MG TABLET PO SCH (08:01)
[2020-07-07] MEDS: OLANZAPINE 5 MG/TAB.RAPDIS PO SCH (08:02)
[2020-07-07] MEDS: DULOXETINE HCL 30 MG CAPSULE.DR PO SCH (08:02)
--- NOTE | 2020-07-07 09:00 | NUR ---
RN NOTE- PT CALM DIRECTABLE DENIES ALL FOCUS ON DC
[2020-07-07] MEDS: METHYLPHENIDATE HCL (10MG) 10 MG TABLET PO SCH (09:17)
[2020-07-07] MEDS: ACETAMINOPHEN 325 MG TABLET PO PRN (09:25)
--- NOTE | 2020-07-07 10:00 | NUR ---
LEASE PURCHASE DRIVER NOTE- PT DC AT THIS TIME VIA TAXI TO [facility] IN [place]. ALERT ORIENTED TO PERSON PLACE TIME AND PURPOSE. DENIES SI HI AH VH. VS STABLE . DC INSTRUCTIONS REVIEWED W PT AND UNDERSTANDING VERBALIZED. VALUABLES RETURNED TO PT AND SIGNED FOR. NO SKIN ISSUES REQUIRING PHOTOS. ID WRISTBAND REMOVED. ESCORTED TO TAXI BY STAFF.
--- NOTE | 2020-07-07 10:36 | NUR ---
Discharge Note: Pt was discharged to [facility] located [address] [place] [address]; ([phone]). Pt was transported via taxi at 9AM. There was no one to notify regarding placement. Upon discharge, pt appeared to be in a dysphoric mood and presented with an agitated affect. Pt appeared to be alert and oriented x4 (time, place, self and situation). Pt denied both suicidal and homicidal ideation as well as auditory and visual hallucinations. Pt appeared ambulatory and well groomed. Pt signed the homeless waiver and was given resources including shelters, food [place], showers, hot meals, mental health clinics, health clinics and substance abuse referrals. Pt will be under the care of psychiatrist, Dr. Augustina Ellis, located at [address], [address] [address]; ([phone]); fax number; ([phone]). Pt has an appointment on 07/22/2020 at 2pm. Pt will also be under the care of market research specialist, Dr. Owen Ga, located at [address], [address], [place] [address]; ([phone]). Pt has an appointment scheduled for 07/31/2020 at 10:30am.
--- NOTE | 2020-07-08 08:24 | NUR ---
UR Note: KARLIE called [employer] keycase assembler, Cristal([phone]), and conducted a discharge clinical on her voicemail. Auth #[id number].
== END 2020-07-07 09:50 | disposition home or self-care (01) | DRG 885 ==
LOC: ER 07:33 → GPS 15:49
PROVIDERS: ADMIT Psychiatry & Neurology Psychiatry; ATTEND Internal Medicine
DX: F32.3 Major depressive disorder, single episode, severe with psychotic features (principal); N39.0 Urinary tract infection, site not specified; F23 Brief psychotic disorder; F41.9 Anxiety disorder, unspecified; I10 Essential (primary) hypertension; M62.81 Muscle weakness (generalized); R27.8 Other lack of coordination; F90.9 Attention-deficit hyperactivity disorder, unspecified type; M19.90 Unspecified osteoarthritis, unspecified site; Z91.81 History of falling; F12.10 Cannabis abuse, uncomplicated; K59.00 Constipation, unspecified
CPT/HCPCS: 36415; 80048-TC; 80053-TC; 80061-TC; 80076-TC; 80305; 81000-TC; 82962-TC; 85025-TC; 87081-TC; G0480; J1200; J1630; J2060; J3490; Q0163

== ENCOUNTER 2020-07-09 09:01 | Emergency (ER) | payer OTHER ==
[~2020-07-09] VITALS: Ht 152.4 cm; Wt 49.9 kg
[~2020-07-09 09:01] MED LIST changes: +DIPH25TA62 PO; -DULO60CA45 PO; +DULO60CA64 PO; +IBUP100O19 PO; +LOSA25TA27 PO; +METH20TA9 PO; +VALA500T40 PO
[2020-07-09 09:11] VITALS: BP 115/74
== END 2020-07-09 09:33 | disposition home or self-care (01) ==
LOC: ER 09:12
DX: M54.12 Radiculopathy, cervical region (principal); H61.21 Impacted cerumen, right ear; I10 Essential (primary) hypertension; F32.9 Major depressive disorder, single episode, unspecified; F17.200 Nicotine dependence, unspecified, uncomplicated; Z60.2 Problems related to living alone; Z79.899 Other long term (current) drug therapy

== ENCOUNTER 2020-07-28 14:18 | Emergency (ER) | payer OTHER ==
[~2020-07-28] VITALS: Ht 157.5 cm; Wt 52.2 kg
--- NOTE | 2020-07-28 14:22 | NUR ---
c/o chronic back pain, denies any recent injury. Patient a/ox4, breathing even and unlabored, also c/o suicidal ideation, sitter at bedside. Needs attended.
[2020-07-28] MEDS ORDERED: CARISOPRODOL 350 MG TABLET PO ONE (15:30)
[2020-07-28] MEDS ORDERED: CARISOPRODOL 350 MG TABLET ONE (15:43)
[2020-07-28 15:45] LABS: BASOPHILS % (AUTO) 0.5 % (0.0-2.0); HEMATOCRIT 39 % (33-45); HEMOGLOBIN 12.8 g/dL (11.5-14.8); LYMPHOCYTES # (AUTO) 2.1 /CMM (0.8-4.8); LYMPHOCYTES % (AUTO) 27.8 % (20.0-44.0); MEAN CORPUSCULAR HGB CONC 33 g/dl (31.0-36.0); MEAN CORPUSCULAR VOLUME 91 fL (82-100); MONOCYTES # (AUTO) 0.5 /CMM (0.1-1.30); MONOCYTES % (AUTO) 7.1 % (2.0-12.0); NEUTROPHILS # (AUTO) 4.8 /CMM (1.8-8.9); NEUTROPHILS % (AUTO) 63.6 % (43.0-81.0); PLATELET COUNT (AUTO) 304 /CMM (150-450); RED BLOOD CELL COUNT(AUTO) 4.24 MIL/uL (4.0-5.2); WHITE BLOOD COUNT (AUTO) 7.5 K/uL (4.3-11.0)
[2020-07-28 15:51] LABS: CALCIUM, SERUM 8.6 mg/dL (8.5-10.1); CARBON DIOXIDE 25 mmol/L (21-32); CHLORIDE 105 mmol/L (98-107); CREATININE 0.5 mg/dL (0.6-1.3); GLUCOSE 79 mg/dL (74-106); POTASSIUM 3.7 mmol/L (3.5-5.1); SODIUM SERUM 141 mmol/L (136-145); UREA NITROGEN, BLOOD 11 mg/dL (7-18)
[2020-07-28 15:56] LABS: ALANINE AMINOTRANSFERASE 18 U/L (12-78); ALBUMIN 3.6 g/dL (3.4-5.0); ALCOHOL, BLOOD < 3 mg/dL (0-0); ALKALINE PHOSPHATASE 77 U/L (46-116); ASPARTATE AMINOTRANSFERASE 16 U/L (15-37); BILIRUBIN,DIRECT 0.1 mg/dL (0.0-0.2); BILIRUBIN,TOTAL 0.5 mg/dL (0.2-1.0); SALICYLATE 3.6 mg/dL (2.8-20.0); TOTAL PROTEIN, SERUM 6.7 g/dL (6.4-8.2)
[2020-07-28 15:57] LABS: ACETAMINOPHEN < 2 ug/ml (10-30)
--- NOTE | 2020-07-28 16:30 | NUR ---
URINE SENT TO LAB.
--- NOTE | 2020-07-28 16:33 | NUR ---
SO [facility] CALLED, SPOKE WITH LESTER,KATHY, WANTS CLINICALS FAXED TO [phone]
[2020-07-28 16:39] LABS: BILIRUBIN,URINE Negative (NEGATIVE); BLOOD, URINE Trace-intact Ery/uL (NEGATIVE); COLOR,URINE Yellow (YELLOW); KETONES,URINE Trace (NEGATIVE); LEUKOCYTE ESTERASE ,URINE Trace (NEGATIVE); NITRITE, URINE Negative (NEGATIVE); PROTEIN,URINE Negative (NEGATIVE); UGLUCOSE Negative (NEGATIVE)
[2020-07-28 16:46] LABS: APPEARANCE,URINE HAZY (CLEAR)
[2020-07-28 16:48] LABS: BACTERIA,URINE Few /HPF (None Seen); SQUAMOUS EPITHELIAL CELL,UR Few /HPF (None Seen)
[2020-07-28] MEDS ORDERED: KETOROLAC TROMETHAMINE INJ 60 MG/2 ML VIAL IM ONE (17:30)
[2020-07-28] MEDS ORDERED: KETOROLAC TROMETHAMINE INJ 30 MG/ML VIAL ONE (17:42)
--- NOTE | 2020-07-28 18:16 | NUR ---
FAXED CLINICALS TO [facility] ATTN [facility] [phone] THEN CALLED TO INFORM OF FAXING.
--- NOTE | 2020-07-28 18:26 | NUR ---
PATIENT RESTING, NO DISTRESS NOTED. KEPT COMFORTABLE. NEEDS ATTENDED.
--- NOTE | 2020-07-28 18:28 | NUR ---
[facility] DR. ESCOTO PLEASE CALL [phone] [address].
--- NOTE | 2020-07-28 18:36 | NUR ---
TRANSPORT CALLED AM [facility] ETA 1999
--- NOTE | 2020-07-28 18:59 | NUR ---
REPORT GIVEN TO DANIEL ESPARZA FOR [facility]. Addendum: 07/28/20 at 1900 by ROALCANCES REPORT GIVEN TO DANIEL ESPARZA AT [facility] UN[address]
--- NOTE | 2020-07-28 19:38 | NUR ---
ETA 8:30 PM
[2020-07-28 20:16] VITALS: BP 121/78
--- NOTE | 2020-07-28 20:38 | NUR ---
PT TRANSFERED TO [facility]
== END 2020-07-28 20:39 | disposition short-term general hospital (02) ==
LOC: ER 14:22
DX: F32.9 Major depressive disorder, single episode, unspecified (principal); G89.29 Other chronic pain; M54.5 Low back pain; F29 Unspecified psychosis not due to a substance or known physiological condition; F41.9 Anxiety disorder, unspecified; F90.9 Attention-deficit hyperactivity disorder, unspecified type; I10 Essential (primary) hypertension; Z60.2 Problems related to living alone; Z79.899 Other long term (current) drug therapy
CPT/HCPCS: 36415; 80048; 80076; 80305; 80307; 80329; 81001; 85025; 96372; 99285; G0480; J1885; 81000-TC

== ENCOUNTER 2020-08-01 13:00 | Emergency (ER) | payer OTHER ==
[~2020-08-01] VITALS: Ht 157.5 cm; Wt 51.7 kg
--- NOTE | 2020-08-01 14:30 | NUR ---
SELF PRESENTS TO ED. AMBULATORY TO ER BED 12 C/O DEPRESSION, STATES UNABLE TO TAKE CARE OF SELF AND WANTS TO BE ADMITTED TO GEROPSYCH FLOOR. DENIES SI/HI. STABLE VITALS. AWAITING MD NASSAR.
--- NOTE | 2020-08-01 14:31 | NUR ---
DR WASHBURN AT BEDSIDE FOR EVAL.
--- NOTE | 2020-08-01 14:42 | NUR ---
ADJUNCT BUSINESS INSTRUCTOR AT BEDSIDE FOR BLOOD DRAW.
[2020-08-01 14:45] LABS: BASOPHILS # (AUTO) 0.1 /CMM (0.0-0.2); EOSINOPHILS % (AUTO) 0.8 % (0.0-6.0); HEMATOCRIT 40 % (33-45); HEMOGLOBIN 13.5 g/dL (11.5-14.8); LYMPHOCYTES % (AUTO) 27.7 % (20.0-44.0); MEAN CORPUSCULAR HGB CONC 34 g/dl (31.0-36.0); MEAN CORPUSCULAR VOLUME 91 fL (82-100); MONOCYTES # (AUTO) 0.4 /CMM (0.1-1.30); MONOCYTES % (AUTO) 5.9 % (2.0-12.0); NEUTROPHILS # (AUTO) 4.7 /CMM (1.8-8.9); NEUTROPHILS % (AUTO) 64.6 % (43.0-81.0); PLATELET COUNT (AUTO) 305 /CMM (150-450); RED BLOOD CELL COUNT(AUTO) 4.46 MIL/uL (4.0-5.2); WHITE BLOOD COUNT (AUTO) 7.2 K/uL (4.3-11.0)
[2020-08-01 15:00] LABS: ALANINE AMINOTRANSFERASE 18 U/L (12-78); ALCOHOL, BLOOD < 3 mg/dL (0-0); ALKALINE PHOSPHATASE 81 U/L (46-116); ASPARTATE AMINOTRANSFERASE 22 U/L (15-37); BILIRUBIN,DIRECT 0.1 mg/dL (0.0-0.2); BILIRUBIN,TOTAL 0.6 mg/dL (0.2-1.0); CARBON DIOXIDE 27 mmol/L (21-32); CHLORIDE 102 mmol/L (98-107); CREATININE 0.6 mg/dL (0.6-1.3); GLUCOSE 85 mg/dL (74-106); SODIUM SERUM 140 mmol/L (136-145); TOTAL PROTEIN, SERUM 7.5 g/dL (6.4-8.2); UREA NITROGEN, BLOOD 9 mg/dL (7-18)
[2020-08-01 15:06] LABS: ACETAMINOPHEN < 2 ug/ml (10-30)
[2020-08-01 15:11] LABS: CALCIUM, SERUM 8.9 mg/dL (8.5-10.1)
[2020-08-01 16:29] LABS: APPEARANCE,URINE Clear (CLEAR); BILIRUBIN,URINE Negative (NEGATIVE); BLOOD, URINE Negative Ery/uL (NEGATIVE); COLOR,URINE Yellow (YELLOW); KETONES,URINE 15 (NEGATIVE); LEUKOCYTE ESTERASE ,URINE Negative (NEGATIVE); NITRITE, URINE Negative (NEGATIVE); PROTEIN,URINE 100 mg/dl (NEGATIVE); UGLUCOSE Negative (NEGATIVE); UROBILINOGEN,URINE 0.2 EU/dL (0.2)
[2020-08-01] MEDS ORDERED: LORAZEPAM 1 MG TABLET ONE (17:01)
[2020-08-01] MEDS ORDERED: IBUPROFEN 600 MG TABLET ONE (17:01)
--- NOTE | 2020-08-01 17:02 | NUR ---
PATIENT REFUSES TO BE TRANSFERRED TO ANOTHER FACILITY. MADE MD AWARE.
[2020-08-01] MEDS: LORAZEPAM 1 MG TABLET PO ONE (17:03)
[2020-08-01] MEDS: IBUPROFEN 600 MG TABLET PO ONE (17:03)
--- NOTE | 2020-08-01 17:15 | NUR ---
Juan caro in [facility] - 08/01/20 at 1724 by ADILIA Patient discharged to home in stable condition. Written and verbal after care instructions given. Patient verbalizes understanding of instruction.
--- NOTE | 2020-08-01 17:15 | NUR ---
Note dianeamanda in EDM - 08/01/20 at 1740 by ADILIA Patient agitated that she will not be admitted in the hospital. Refused to sign DC and homeless waiver form. Patient given written and verbal discharge instructions. Patient verbalizes understanding of instructions. Patient is ambulatory with steady gait. Refuses offer of [facility]. Patient given list of available shelters in surrounding area.
--- NOTE | 2020-08-01 17:15 | NUR ---
Patient agitated that she will not be admitted in the hospital. Walked out of the Emergency room.
== END 2020-08-01 17:16 | disposition home or self-care (01) ==
LOC: ER 13:01
DX: F32.9 Major depressive disorder, single episode, unspecified (principal); I10 Essential (primary) hypertension; Z60.2 Problems related to living alone; Z79.899 Other long term (current) drug therapy
CPT/HCPCS: 36415; 80048; 80076; 80305; 80307; 80329; 81001; 85025; 99284; G0480; 81000-TC

== ENCOUNTER 2020-12-12 12:43 | Emergency (ER) | payer OTHER ==
[~2020-12-12] VITALS: Ht 154.9 cm; Wt 54.4 kg
[2020-12-12] MEDS ORDERED: IV NS 0.9% 1,000 ML BAG IV ONE (13:00)
[2020-12-12] MEDS ORDERED: ONDANSETRON HCL/PF 4 MG/2 ML VIAL IVP ONE (13:00)
--- NOTE | 2020-12-12 13:05 | NUR ---
BIBS TO ER BED 12. AAOX4. NOT IN RESP DISTRESS. AMBULATORY. CAME IN FOR LOWER ABD PAIN. PT ALSO COMPLAINT OF NAUSEA AND VOMMITING. MD WAS AT THE BEDSIDE. IV LINE ESTABLSIHED ON RAC 20G. BLOOD DRAWN AND GIVEN TO ETHICAL HACKER AT BEDSIDE.
[2020-12-12] MEDS ORDERED: ONDANSETRON HCL/PF 4 MG/2 ML VIAL ONE (13:06)
[2020-12-12 13:19] LABS: BASOPHILS # (AUTO) 0.1 /CMM (0.0-0.2); EOSINOPHILS % (AUTO) 1.4 % (0.0-6.0); HEMATOCRIT 42 % (33-45); HEMOGLOBIN 14.3 g/dL (11.5-14.8); LYMPHOCYTES # (AUTO) 3.6 /CMM (0.8-4.8); LYMPHOCYTES % (AUTO) 30.9 % (20.0-44.0); MEAN CORPUSCULAR HGB CONC 34 g/dl (31.0-36.0); MEAN CORPUSCULAR VOLUME 87 fL (82-100); MONOCYTES # (AUTO) 0.8 /CMM (0.1-1.30); MONOCYTES % (AUTO) 6.4 % (2.0-12.0); NEUTROPHILS # (AUTO) 7.1 /CMM (1.8-8.9); NEUTROPHILS % (AUTO) 60.3 % (43.0-81.0); PLATELET COUNT (AUTO) 328 /CMM (150-450); RED BLOOD CELL COUNT(AUTO) 4.83 MIL/uL (4.0-5.2); WHITE BLOOD COUNT (AUTO) 11.8 K/uL (4.3-11.0)
[2020-12-12 13:24] LABS: CALCIUM, SERUM 9.2 mg/dL (8.5-10.1); CREATININE 0.6 mg/dL (0.6-1.3); POTASSIUM 3.8 mmol/L (3.5-5.1)
--- NOTE | 2020-12-12 13:28 | NUR ---
URINE SENT TO LAB
[2020-12-12 13:32] LABS: ALBUMIN 4.2 g/dL (3.4-5.0); BILIRUBIN,DIRECT 0.1 mg/dL (0.0-0.2); BILIRUBIN,TOTAL 0.5 mg/dL (0.2-1.0); TOTAL PROTEIN, SERUM 7.6 g/dL (6.4-8.2)
[2020-12-12 13:44] LABS: BILIRUBIN,URINE SMALL (NEGATIVE); COLOR,URINE DARK YELLOW (YELLOW); LEUKOCYTE ESTERASE ,URINE NEGATIVE (NEGATIVE); NITRITE, URINE NEGATIVE (NEGATIVE); PROTEIN,URINE 100 mg/dl (NEGATIVE); UGLUCOSE NEGATIVE (NEGATIVE); UROBILINOGEN,URINE 0.2 EU/dL (0.2)
[2020-12-12 13:51] LABS: BACTERIA,URINE Rare /HPF (None Seen); CALCIUM OXALATE CRYSTALS,UR Few /HPF (None Seen); SQUAMOUS EPITHELIAL CELL,UR Rare /HPF (None Seen); WBC,URINE 0-3 /HPF (0-3)
[2020-12-12] MEDS ORDERED: ONDA4TAB5 PO (14:22)
[2020-12-12 14:42] VITALS: BP 129/87
--- NOTE | 2020-12-12 14:42 | NUR ---
Patient discharged to home in stable condition. Written and verbal after care instructions given. Patient verbalizes understanding of instruction. Pt ambulatory with a steady gait IV removed. Catheter intact and site benign. Pressure and 4x4 applied to site. No bleeding noted.
== END 2020-12-12 14:43 | disposition home or self-care (01) ==
LOC: ER 12:46
DX: R11.2 Nausea with vomiting, unspecified (principal); R19.7 Diarrhea, unspecified; R82.4 Acetonuria; R10.84 Generalized abdominal pain; I10 Essential (primary) hypertension; F32.9 Major depressive disorder, single episode, unspecified; Z59.0 Homelessness; Z79.899 Other long term (current) drug therapy
CPT/HCPCS: 36415; 71045; 80048; 80076; 81001; 83690; 85025; 93005; 96361; 96374; 99285; J2405; J7030